=== PATIENT | male | born 1985 | race Caucasian/White ===

== ENCOUNTER 2016-10-14 14:46 | Emergency (ER) | payer OTHER ==
[2016-10-14 15:48] LABS: BASOPHILS 0.4 % (0-2); EOSINOPHILS 6.1 % (0-7); HEMATOCRIT 41.3 % (42.0-54.0); HEMOGLOBIN 14.2 g/dL (13.5-17.5); IMMATURE GRANULOCYTES 0.1 % (0-5); LYMPHOCYTES 26.4 % (15-50); MCH 28.6 pg (26.0-34.0); MCHC 34.4 g/dL (31.0-37.0); MCV 83.3 fL (80.0-100.0); MEAN PLATELET VOLUME 9.7 fL (7.4-10.4); MONOCYTES 8.5 % (2-11); NEUTROPHILS 58.5 % (40-80); PLATELET COUNT 237 10x3/uL (130-400); RBC 4.96 10x6/uL (4.20-6.10); RDW 12.5 % (11.5-14.5); WBC 6.9 10x3/uL (4.8-10.8)
[2016-10-14 15:59] LABS: INR 1.03 (0.85-1.17); PROTIME 13.3 SECONDS (11.6-15.0)
[2016-10-15] MEDS ORDERED: HYDROCHLOROTH12.5 M1 PO (13:21)
[2016-10-15] MEDS ORDERED: METOPROLOL TART25 MG PO (13:21)
[2016-10-15] MEDS ORDERED: ZESTRIL40 MG PO (13:21)
[2016-10-15] MEDS ORDERED: ZITHROMAX250 MG PO (13:22)
== END 2016-10-14 17:32 | disposition home or self-care (01) ==
LOC: D.ER 14:46
PROVIDERS: Nurse Practitioner Family
DX: S61.411A Laceration without foreign body of right hand, initial encounter (principal); S66.328A Laceration of extensor muscle, fascia and tendon of other finger at wrist and hand level, initial encounter; W26.9XXA Contact with unspecified sharp object(s), initial encounter; Y93.89 Activity, other specified; Y92.89 Other specified places as the place of occurrence of the external cause; I10 Essential (primary) hypertension

== ENCOUNTER 2016-10-16 10:21 | Day surgery (SDC) | payer OTHER ==
[~2016-10-16] VITALS: Ht 195.6 cm; Wt 127.5 kg
[~2016-10-16 10:21] MED LIST: HYDROCHLOROTH12.5 M1 PO; METOPROLOL TART25 MG PO; ZESTRIL40 MG PO; ZITHROMAX250 MG PO
[2016-10-16 13:03] VITALS: BP 128/80; Ht 195.6 cm; Wt 127.5 kg
[2016-10-16 14:22] LABS: HEMATOCRIT 41.2 % (42.0-54.0); HEMOGLOBIN 14.2 g/dL (13.5-17.5); MCH 28.9 pg (26.0-34.0); MCHC 34.5 g/dL (31.0-37.0); MCV 83.9 fL (80.0-100.0); MEAN PLATELET VOLUME 9.6 fL (7.4-10.4); RBC 4.91 10x6/uL (4.20-6.10); RDW 12.6 % (11.5-14.5)
[2016-10-16 14:31] LABS: CALC OSMOLALITY 277 mosm/kg (275-300); CALCIUM 8.5 mg/dL (8.5-10.1); CARBON DIOXIDE 28.1 mmol/L (21.0-32.0); CHLORIDE - SERUM 104 mmol/L (98-107); CREATININE - SERUM 0.7 mg/dL (0.6-1.3); GLUCOSE 92 mg/dL (74-106); POTASSIUM - SERUM 3.8 mmol/L (3.5-5.1); SODIUM 139 mmol/L (136-145); UREA NITROGEN 12 mg/dL (7-18); eGFR NON AFRICAN AMERICAN > 90 mL/min (90-120)
[2016-10-16] MEDS ORDERED: PERCOCET 5-3251 TAB PO (19:11)
[2016-10-16] MEDS ORDERED: AUGMENTIN 875-11 TAB PO (19:12)
--- NOTE | 2016-10-16 20:12 | NUR ---
IV DC WITH CATHER TIP INTACT,W/O REDNESS UP TO BATHROOM TO VOID
--- NOTE | 2016-10-17 11:14 | OP ---
PATIENT NAME: DINO GANNON MEDICAL RECORD: [id number] [facility] AD[facility]ION DATE: SURGEON: MAC HANEY DO DATE OF OPERATION: 10/16/2016 PROCEDURE PERFORMED: Right index and middle finger extensor tendon repair of the common extensor tendons, as well as a metacarpophalangeal joint irrigation and debridement and capsular closure. PREOPERATIVE DIAGNOSIS: Right middle finger extensor tendon laceration. POSTOPERATIVE DIAGNOSIS: Right middle finger extensor tendon laceration plus index finger common extensor tendon laceration and a traumatic arthrotomies of the metacarpophalangeal joints of the index and middle fingers. INDICATIONS: Mr. Gannon is a 31-year-old male that was working on a house and was a breaking a window. His right hand went through the window and received a laceration transversely across the metacarpophalangeal joint on his right hand. He was seen in the Emergency Room and noted to not be able to extend the middle finger. The patient was seen by me in the Emergency Room and I told the ER to irrigate and loosely close the wound and I would see him in clinic. I saw him in the clinic the following day and then scheduled him for surgery today. The patient does work with his hands quite a bit and requires use of them and decided to proceed forward with the procedure. SURGEON: Mac Haney DO. ASSISTED BY: Sonia Caal advance nurse practitioner. DESCRIPTION OF PROCEDURE: The patient was taken to the operative suite, placed in supine position, given a general anesthetic and 2 grams of Ancef. The right arm was then prepped with Betadine to the elbow and draped in sterile fashion. Timeout was performed and all parties were in agreeance and the right hand and arm was exsanguinated with an Prateek wrap and the tourniquet was inflated to 250 mmHg. The tourniquet was let down at 39 minutes. Once this was done, the wound that had been loosely closed was opened. The extensor tendon to the middle finger was found. A modified Rogers 4-strand core suture type stitch was used to reapproximate the middle finger extensor and then a 6-0 Prolene was used to do an epitendinous suture around that repair as well. The traumatic arthrotomies were then noted of the middle and index metacarpophalangeal joints. The extensor indices proprius was seen to be intact. The index finger and the wound was explored more thoroughly and the extensor communis to the index finger had seen the 100% lacerated. It was then encountered both the distal and the proximal portions and the same repair was done in a modified Rogers 4-strand core suture and then a 6-0 Prolene was used as an epitendinous suture around that repair with the 4-0 Ethibond. The capsules were then opened thoroughly and irrigated thoroughly and then repaired loosely with the 4-0 Ethibond simple and [id number] fashion both the index and the middle fingers. The wound was then irrigated, tourniquet was let down and the skin was closed with a 4-0 nylon in a running stitch. The patient was dressed with Adaptic, 4 x 4s, and Webril with the 2 fingers in extension of the index and middle finger and with the wrist extended up to 30 degrees of extension. The splint was placed in that position just on the index and middle fingers and the wrist and then overwrapped with Coban. Blood loss was minimal. The patient was awakened and taken to the PACU in stable condition. OPERATIVE REPORT [id number] DINO GANNON TRANSINT:[id number] Voice Confirmation ID: [id number] DOCUMENT ID: [id number] MAC HANEY DO at 1114 CC: [id number] DICTATION DATE: 10/16/161916 [employer] SUPERVISOR: 10/17/16 0053 [facility] 10/16/16 [address] [id number] [place] [address]
== END 2016-10-16 20:23 | disposition home or self-care (01) ==
LOC: D.OPS 10:21 → D.PAN 13:15 → D.OPS 20:23
PROVIDERS: Anesthesiology
DX: S61.411A Laceration without foreign body of right hand, initial encounter (principal); I10 Essential (primary) hypertension; Z01.812 Encounter for preprocedural laboratory examination; W26.8XXA Contact with other sharp object(s), not elsewhere classified, initial encounter